=== PATIENT | male | born 1980 | race Caucasian/White ===

== ENCOUNTER 2020-07-25 08:32 | Emergency (ER) | payer OTHER ==
[~2020-07-25] VITALS: Ht 188 cm; Wt 97.5 kg
[2020-07-25 09:20] LABS: ABSOLUTE BASOPHILS 0.1 thou/uL (0.0-0.2); ABSOLUTE EOSINOPHILS 0.2 thou/uL (0.0-0.7); ABSOLUTE LYMPHOCYTES 1.6 thou/uL (0.8-5.3); ABSOLUTE MONOCYTES 0.4 thou/uL (0.0-1.2); ABSOLUTE NEUTROPHILS 4.2 thou/uL (1.6-8.1); BASOPHILS 0.8 %; EOSINOPHILS 2.4 %; HEMATOCRIT 42.1 % (42.0-52.0); HEMOGLOBIN 14.3 gm/dL (14.0-18.0); LYMPHOCYTES 25.2 %; MCH 29.4 pg (26.0-34.0); MCHC 33.9 g/dL (28.0-37.0); MCV 86.8 fL (80.0-100.0); MONOCYTES 5.8 %; NUCLEATED RBCS 0 /100WBC; PLATELET COUNT* 293 thou/uL (150-400); POLYS 65.8 %; RBC 4.85 mil/uL (4.50-6.00); RDW-CV 12.6 % (10.5-14.5); WBC 6.4 thou/uL (4.0-11.0)
[2020-07-25 09:25] LABS: CALCIUM 8.8 mg/dL (8.5-10.1); POTASSIUM 3.9 mmol/L (3.5-5.1)
[2020-07-25 09:30] LABS: TOTAL BILIRUBIN 0.2 mg/dL (<0.1-1.0); TOTAL PROTEIN 7.3 g/dL (6.4-8.2)
[2020-07-25] MEDS ORDERED: ZPAK PO (10:23)
[2020-07-25] MEDS ORDERED: DULCOLAX STOOL100 M1 PO (10:23)
[2020-07-25 10:40] VITALS: BP 138/72
== END 2020-07-25 10:41 | disposition home or self-care (01) ==
LOC: M.ERS 08:32
PROVIDERS: Emergency Medicine Emergency Medical Services
DX: J02.0 Streptococcal pharyngitis (principal); K64.9 Unspecified hemorrhoids; Z20.828 Contact with and (suspected) exposure to other viral communicable diseases